=== PATIENT | female | born 1960 | race Two or more races ===

== ENCOUNTER → 2019-11-25 | Emergency (ER) | payer OTHER | END | disposition left against medical advice (07) | LOC: ER 13:17 | DX: Z53.20 Procedure and treatment not carried out because of patient's decision for unspecified reasons (principal) ==

== ENCOUNTER → 2020-02-13 | Outpatient (CLI) | payer OTHER | END | disposition home or self-care (01) | LOC: OFIC 805 12:30 | PROVIDERS: ATTEND Otolaryngology Otology & Neurotology | DX: R42 Dizziness and giddiness (principal); H90.3 Sensorineural hearing loss, bilateral; H61.23 Impacted cerumen, bilateral ==

== ENCOUNTER 2020-05-28 13:23 | Outpatient (CLI) | payer OTHER | END 2020-05-28 14:33 | disposition home or self-care (01) | LOC: OFIC 805 13:23 | PROVIDERS: ATTEND Otolaryngology Otology & Neurotology | DX: R42 Dizziness and giddiness (principal); H90.3 Sensorineural hearing loss, bilateral; H60.392 Other infective otitis externa, left ear ==

== ENCOUNTER 2020-06-02 14:52 | Outpatient (CLI) | payer OTHER | END 2020-06-02 17:02 | disposition home or self-care (01) | LOC: OFIC 805 14:52 | PROVIDERS: ATTEND Otolaryngology Otology & Neurotology | DX: T16.2XXA Foreign body in left ear, initial encounter (principal); H60.392 Other infective otitis externa, left ear; H90.3 Sensorineural hearing loss, bilateral; R42 Dizziness and giddiness; H61.21 Impacted cerumen, right ear ==

== ENCOUNTER 2020-06-27 14:44 | Outpatient (CLI) | payer OTHER | END 2020-06-27 15:18 | disposition home or self-care (01) | LOC: OFIC 805 14:44 | PROVIDERS: ATTEND Otolaryngology Otology & Neurotology | DX: H92.01 Otalgia, right ear (principal); H60.391 Other infective otitis externa, right ear ==

== ENCOUNTER 2020-08-12 14:57 | Outpatient (CLI) | payer OTHER | END 2020-08-12 15:41 | disposition home or self-care (01) | LOC: OFIC 805 14:57 | PROVIDERS: ATTEND Otolaryngology Otology & Neurotology | DX: H60.391 Other infective otitis externa, right ear (principal); R42 Dizziness and giddiness ==

== ENCOUNTER 2020-11-10 13:38 | Outpatient (CLI) | payer OTHER | END 2020-11-10 13:40 | disposition home or self-care (01) | LOC: NUCLEAR 13:38 | PROVIDERS: ATTEND Internal Medicine | DX: M85.80 Other specified disorders of bone density and structure, unspecified site (principal); M81.0 Age-related osteoporosis without current pathological fracture ==

== ENCOUNTER → 2020-11-12 12:10 | Outpatient (CLI) | payer OTHER | END | disposition home or self-care (01) | LOC: LAB 12:10 | PROVIDERS: ATTEND Internal Medicine | DX: M79.10 Myalgia, unspecified site (principal); M35.9 Systemic involvement of connective tissue, unspecified; R53.83 Other fatigue; M25.50 Pain in unspecified joint; M85.80 Other specified disorders of bone density and structure, unspecified site; M25.59 Pain in other specified joint ==

== ENCOUNTER 2021-08-07 11:10 | Outpatient (CLI) | payer OTHER | END 2021-08-07 11:14 | disposition home or self-care (01) | LOC: LAB 11:10 | PROVIDERS: ATTEND Internal Medicine Cardiovascular Disease | DX: E03.9 Hypothyroidism, unspecified (principal); I11.9 Hypertensive heart disease without heart failure; E78.5 Hyperlipidemia, unspecified ==

== ENCOUNTER 2021-08-07 12:04 | Outpatient (CLI) | payer OTHER | END 2021-08-07 12:11 | disposition home or self-care (01) | LOC: RAD 12:04 | PROVIDERS: ATTEND Internal Medicine Cardiovascular Disease | DX: I51.7 Cardiomegaly (principal) ==

== ENCOUNTER 2022-05-05 11:41 | Emergency (ER) | payer OTHER ==
[~2022-05-05] VITALS: Ht 160 cm; Wt 57.6 kg
== END 2022-05-05 19:33 | disposition home or self-care (01) ==
LOC: ER 11:41
DX: J03.90 Acute tonsillitis, unspecified (principal); Z20.822 Contact with and (suspected) exposure to COVID-19

== ENCOUNTER 2022-05-06 18:39 | Emergency (ER) | payer OTHER ==
[~2022-05-06] VITALS: Ht 160 cm; Wt 57.6 kg
== END 2022-05-06 22:46 | disposition home or self-care (01) ==
LOC: ER 18:39
DX: J03.90 Acute tonsillitis, unspecified (principal)

== ENCOUNTER 2022-05-25 14:53 | Outpatient (CLI) | payer OTHER | END 2022-05-25 14:59 | disposition home or self-care (01) | LOC: LAB 14:53 | PROVIDERS: ATTEND Otolaryngology Otology & Neurotology | DX: J03.00 Acute streptococcal tonsillitis, unspecified (principal) ==

== ENCOUNTER → 2022-05-31 | Outpatient (CLI) | payer OTHER | END | disposition home or self-care (01) | LOC: TOM 07:58 | PROVIDERS: ATTEND Otolaryngology Otology & Neurotology | DX: J03.90 Acute tonsillitis, unspecified (principal) ==

== ENCOUNTER 2022-06-21 15:21 | Outpatient (CLI) | payer OTHER | END 2022-06-21 15:28 | disposition home or self-care (01) | LOC: RAD 15:21 | PROVIDERS: ATTEND Physical Medicine & Rehabilitation | DX: M54.2 Cervicalgia (principal); M86.641 Other chronic osteomyelitis, right hand; M86.50 Other chronic hematogenous osteomyelitis, unspecified site; M19.041 Primary osteoarthritis, right hand; M19.042 Primary osteoarthritis, left hand ==

== ENCOUNTER 2025-01-26 11:14 | Outpatient (CLI) | payer OTHER ==
[2025-01-26 12:06] LABS: BASO % 0.8 % (0.1-1.2); EOS # 0.59 (0.04-0.54); EOS % 9.0 % (0.7-7.0); LYMPH # 1.97 (1.18-3.74); LYMPH % 30.1 % (19.3-53.1); MEAN PLATELET VOLUME 10.40 fl (9.4-12.4); MONO # 0.50 (0.24-0.82); MONO % 7.6 % (4.7-12.5); NEUT # 3.43 (1.56-6.13); NEUT % 52.3 % (34.0-71.1); RED CELL DISTRIBUTION WIDTH 12.0 % (11.6-14.4)
[2025-01-26 12:08] LABS: URINE APPEARANCE Cloudy; URINE BILIRRUBIN Negative (NEGATIVE); URINE BLOOD Negative; URINE COLOR Yellow; URINE GLUCOSE Negative (NEGATIVE); URINE KETONE Negative (NEGATIVE); URINE LEUKOCYTE Large; URINE NITRATE Negative; URINE PROTEIN Trace (NEGATIVE); URINE UROBILINOGEN 1.0 E.U./dl
[2025-01-26 12:11] LABS: URINE BACTERIA 5857.1 uL (0.0-1933); URINE RBC 22.7 uL (0.0-20.8); URINE WBC 804.1 uL (0.0-23.2)
[2025-01-26 12:38] LABS: ALT/SGPT 20.0 U/L (12-78); AST/SGOT 19.0 U/L (15-37); BILIRUBIN TOTAL 0.73 mg/dL (0.3-1.2); BUN CREA RATIO 21.0 (7.0-25.0); CHOL HDL RATIO 3.9 (0-5.0); CREATININE SERUM 0.81 mg/dL (0.55-1.02); GFR 70.96; GLOBULINA 3.0 G/DL (2.4-3.5); GLUCOSE FASTING 84.0 mg/dL (65-100); HDL 65.0 mg/dl (40-60); LDL 168.0 mg/dl (0-130); OSMOLALITY SERUM 286.0 MOSM/KG (275-295); TSH 1.04 uIU/mL (0.358-3.74); VLDL 23.0 (0-39); ob NEGATIVE (NEGATIVE)
[2025-01-26 14:28] LABS: URINE CAST 0.87 uL (0.0-1.40); URINE EPITHELIAL CELLS > 201.7 uL (0.0-38.8)
== END 2025-01-26 11:19 | disposition home or self-care (01) ==
LOC: LAB 11:14
PROVIDERS: ATTEND Internal Medicine
DX: D64.9 Anemia, unspecified (principal); E11.9 Type 2 diabetes mellitus without complications; E78.2 Mixed hyperlipidemia; N39.0 Urinary tract infection, site not specified; E03.8 Other specified hypothyroidism; N18.31 Chronic kidney disease, stage 3a; Z12.11 Encounter for screening for malignant neoplasm of colon; E55.9 Vitamin D deficiency, unspecified

== ENCOUNTER 2025-01-28 10:13 | Outpatient (CLI) | payer OTHER | END 2025-01-28 10:22 | disposition home or self-care (01) | LOC: MAMO-SONO 10:13 | PROVIDERS: ATTEND Internal Medicine | DX: N64.4 Mastodynia (principal); R92.8 Other abnormal and inconclusive findings on diagnostic imaging of breast ==

== ENCOUNTER 2025-01-30 14:42 | Outpatient (CLI) | payer OTHER | END 2025-01-30 23:00 | disposition home or self-care (01) | LOC: LAB 14:42 | PROVIDERS: ATTEND Internal Medicine | DX: N39.0 Urinary tract infection, site not specified (principal) ==

== ENCOUNTER 2025-02-05 13:21 | Outpatient (CLI) | payer OTHER | END 2025-02-05 13:24 | disposition home or self-care (01) | LOC: NUCLEAR 13:21 | PROVIDERS: ATTEND Internal Medicine | DX: M81.0 Age-related osteoporosis without current pathological fracture (principal) ==